=== PATIENT | female | born 1990 | race Hispanic/Latino ===

== ENCOUNTER 2018-12-25 15:48 | Outpatient (CLI) | payer OTHER ==
--- NOTE | 2018-12-25 16:36 | ULT ---
Obstetric sonogram HISTORY: evaluation. Second trimester gestation. FINDINGS: Single intrauterine gestation in breech presentation. Cervix is closed and 4.5 cm. Grade 0 placenta is anterior. Four-chamber heart motion at 158 bpm. spine and kidneys are intact as visualized. Amniotic fluid within normal limits. No gross intracranial abnormalities are demonstrated . Three-vessel cord shows a normal insertion. Measurements are as follows: Biparietal diameter 20 weeks 5 days. Head circumference 20 weeks 3 days. Abdominal circumference 20 weeks 2 days. Femur length 20 weeks 3 days. Hadlock 52 percentile. IMPRESSION: Single viable intrauterine gestation with estimated gestational age based on today's sono gram 20 weeks 4 days
== END 2018-12-25 15:49 | disposition home or self-care (01) ==
LOC: BICULT 15:48
PROVIDERS: ATTEND Family Medicine
DX: O09.892 Supervision of other high risk pregnancies, second trimester (principal); Z3A.20 20 weeks gestation of pregnancy
CPT/HCPCS: 76805

== ENCOUNTER 2019-04-28 03:26 | Inpatient (IN) | payer OTHER, SELFPAY ==
[2019-04-28 03:53] VITALS: BMI 29.2
[2019-04-28 04:10] LABS: Amnisure Internal Control QC ACCEPTABLE (ACCEPTABLE)
[2019-04-28 04:11] LABS: Amnisure Test RUPTURE DETECTED (No Rupture)
[2019-04-28] MEDS ORDERED: Acetaminophen 500 MG TAB PO PRN (04:39)
[2019-04-28] MEDS ORDERED: hydrALAZINE 20 MG/ML VIAL SLOW IVP PRN ×2 (04:39→10:36)
[2019-04-28] MEDS ORDERED: Ondansetron PF 4 MG/2 ML Vial IVP PRN ×3 (04:39→10:36)
[2019-04-28] MEDS ORDERED: Butorphanol Tartrate 1 MG/ML VIAL SLOW IVP PRN (04:39)
[2019-04-28] MEDS ORDERED: Promethazine HCl 25 MG/ML VIAL IM PRN ×2 (04:39→09:09)
[2019-04-28] MEDS ORDERED: Ibuprofen 800 MG TAB PO PRN (04:45)
[2019-04-28] MEDS ORDERED: NS / Oxytocin 40 units/1000ml 1,000 ML IV SCH ×2 (04:45→10:36)
[2019-04-28] MEDS ORDERED: Misoprostol 200 MCG TAB RC PRN (04:45)
[2019-04-28] MEDS ORDERED: Carboprost 250 MCG/ML AMP IM PRN (04:45)
[2019-04-28] MEDS ORDERED: NS w/ Oxytocin 10 units 500 ML IV SCH ×2 (04:45)
[2019-04-28] MEDS ORDERED: Methylergonovine 0.2 MG/ML VIAL IM PRN (04:45)
[2019-04-28] MEDS ORDERED: Diphenoxylate HCl/Atropine Tablet PO PRN (04:45)
[2019-04-28] MEDS ORDERED: HYDROcodone/Acetaminophen 5/325 mg Tablet PO PRN ×2 (04:45→10:36)
[2019-04-28] MEDS ORDERED: Lidocaine 1% (PF) 30 ML VIAL SC PRN (04:45)
[2019-04-28] MEDS: Lactated Ringer's 1,000 ML IV SCH ×2 (05:20→08:08)
[2019-04-28 05:56] LABS: Hemoglobin 11.9 g/dL (12.0-16.0); Mean Corpuscular HGB CONC 34.5 g/dL (32.0-36.0); Mean Corpuscular Hemoglobin 28.6 pg (27.0-31.0); Mean Corpuscular Volume 82.9 fL (78.0-98.0); Mean Platelet Volume 8.7 fL (7.4-10.4); Platelet Count 229 thou/uL (130-400); RBC Distribution Width 12.4 % (11.5-14.5); Red Blood Cell (RBC) Count 4.17 mill/uL (4.20-5.40); White Blood Cell (WBC) Count 8.4 thou/uL (4.8-10.8)
[2019-04-28 06:39] LABS: HBSAg Index 0.13 S/CO (0-0.99); Hep B Surf Ag Non-Reactive S/CO (NonReactive); Syphilis Antibody Nonreactive (Nonreactive); Syphilis Antibody Index 0.06 S/CO (<1.00 Non-Reactive)
[2019-04-28] MEDS ORDERED: Fentanyl 4 mcg/Bup 0.1% Cadd 100 ML ONE (08:03)
[2019-04-28] MEDS ORDERED: NS / Oxytocin 40 units/1000ml 1,000 ML ONE (09:01)
[2019-04-28] MEDS ORDERED: Lidocaine 1% (PF) 30 ML VIAL ONE (09:01)
[2019-04-28] MEDS ORDERED: diphenhydrAMINE 50 MG/ML VIAL IVP PRN (09:09)
[2019-04-28] MEDS ORDERED: ePHEDrine/0.9% NaCl/PF SYRINGE 50 mg/10 ml SLOW IVP PRN (09:09)
[2019-04-28] MEDS ORDERED: Acetaminophen 325 MG TAB PO PRN (09:09)
[2019-04-28] MEDS ORDERED: Lactated Ringer's 500 ML IV PRN (09:09)
[2019-04-28] MEDS ORDERED: Naloxone HCl 0.4 mg/ml Vial IVP PRN ×2 (09:09)
[2019-04-28] MEDS ORDERED: Communication Order-Pharmacy FS SCH (09:15)
[2019-04-28] MEDS ORDERED: Fentanyl 4 mcg/Bupivacaine 0.1% Cassette 100 ML EPIDURAL SCH (09:15)
[2019-04-28] MEDS ORDERED: Misoprostol 200 MCG TAB ONE (09:20)
[2019-04-28] MEDS ORDERED: Lanolin Ointment 7 GM TUBE TOP PRN (10:36)
[2019-04-28] MEDS ORDERED: diphenhydrAMINE 25 MG CAP PO PRN (10:36)
[2019-04-28] MEDS ORDERED: Adacel (T-DAP) 0.5 ML SYRINGE IM ONE (10:36)
[2019-04-28] MEDS ORDERED: Bisacodyl 10 MG SUPP PR PRN (10:36)
[2019-04-28] MEDS ORDERED: Milk Of Magnesia 30 ML UDCUP PO PRN (10:36)
[2019-04-28] MEDS: Ibuprofen 800 MG TAB PO SCH ×2 (12:30→21:18)
[2019-04-28] MEDS: HYDROcodone/Acetaminophen 5/325 mg Tablet PO PRN (15:09)
[2019-04-28] MEDS: Ferrous Sulfate 325 MG TAB PO SCH (17:19)
[2019-04-28] MEDS: Docusate Calcium (SURFAK) 240 MG CAP PO SCH (21:18)
[2019-04-29] MEDS: Ibuprofen 800 MG TAB PO SCH ×2 (04:46→13:19)
[2019-04-29] MEDS: HYDROcodone/Acetaminophen 5/325 mg Tablet PO PRN ×4 (04:46→16:52)
[2019-04-29 06:54] LABS: Hemoglobin 11.3 g/dL (12.0-16.0); Mean Corpuscular HGB CONC 33.9 g/dL (32.0-36.0); Mean Corpuscular Hemoglobin 28.9 pg (27.0-31.0); Mean Corpuscular Volume 85.2 fL (78.0-98.0); Mean Platelet Volume 8.6 fL (7.4-10.4); Platelet Count 194 thou/uL (130-400); RBC Distribution Width 12.7 % (11.5-14.5); Red Blood Cell (RBC) Count 3.92 mill/uL (4.20-5.40); White Blood Cell (WBC) Count 6.6 thou/uL (4.8-10.8)
[2019-04-29] MEDS: Ferrous Sulfate 325 MG TAB PO SCH (08:07)
[2019-04-29 08:18] VITALS: BP 91/52; TEMP 98.6
[2019-04-29] MEDS: Docusate Calcium (SURFAK) 240 MG CAP PO SCH (08:29)
[2019-04-29] MEDS ORDERED: Prenatal Vitamin 1 TAB PO SCH (09:00)
== END 2019-04-29 17:20 | disposition home or self-care (01) | DRG 807 ==
LOC: L&D/OP 03:26 → L&D 04:52 → 3SW 14:46
PROVIDERS: ADMIT Family Medicine; ATTEND Family Medicine
PROC: 10E0XZZ Delivery of Products of Conception, External Approach (ICD-10-PCS; principal; 2019-04-28)
DX: O80 Encounter for full-term uncomplicated delivery (principal); Z37.0 Single live birth; Z3A.37 37 weeks gestation of pregnancy
CPT/HCPCS: 36415; 84112; 85027; 86780; 86850; 86900; 86901; 87340; J2001; J2590

== ENCOUNTER 2020-06-23 09:35 | Inpatient (IN) | payer SELFPAY, OTHER ==
[~2020-06-23 09:35] MED LIST: Iopamidol 370 76% 50 ML VIAL FS ONE
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
[2020-06-23] MEDS ORDERED: Fentanyl 100 MCG/2 ML VIAL ONE ×2 (10:04→10:47)
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
[2020-06-23 10:32] LABS: Hemoglobin 9.9 g/dL (12.0-16.0); Mean Corpuscular HGB CONC 32.7 g/dL (32.0-36.0); Mean Corpuscular Hemoglobin 28.6 pg (27.0-31.0); Mean Corpuscular Volume 87.5 fL (78.0-98.0); Mean Platelet Volume 8.2 fL (7.4-10.4); Platelet Count 267 thou/uL (130-400); RBC Distribution Width 11.6 % (11.5-14.5); Red Blood Cell (RBC) Count 3.47 mill/uL (4.20-5.40); White Blood Cell (WBC) Count 27.1 thou/uL (4.8-10.8)
[2020-06-23 10:40] LABS: INR-International Normal Ratio 1.3; PTT 27.6 sec (22.9-36.1); Prothrombin Time 16.1 sec (12.0-14.7)
[2020-06-23] MEDS ORDERED: Ondansetron PF 4 MG/2 ML Vial ONE (10:44)
[2020-06-23] MEDS ORDERED: Midazolam HCl 2 mg/2 ml Vial ONE (10:46)
[2020-06-23 10:57] LABS: ALT (SGPT) 12 U/L (8-55); AST (SGOT) 19 U/L (5-34); Albumin 3.2 g/dL (3.5-5.0); Alkaline Phosphatase 50 U/L (40-110); Anion Gap 13 mmol/L (10-20); BUN (Urea Nitrogen) 12 mg/dL (7.0-18.7); Band 15 % (5-11); Bilirubin, Total 0.7 mg/dL (0.2-1.2); Calc. Creatinine Clearance 0 mL/min (70-130); Calcium 7.3 mg/dL (7.8-10.44); Carbon Dioxide 18 mmol/L (22-29); Chloride 104 mmol/L (98-107); Globulin 2.1 g/dL (2.4-3.5); Glucose 213 mg/dL (70-105); Lipase 15 U/L (8-78); Lymphocytes 11 % (21-51); MDiff Complete? YES; Magnesium 1.8 mg/dL (1.6-2.6); Monocytes 4 % (0-10); Myelocyte 1 % (0-0); Neutrophil 69 % (42-75); Protein, Total 5.3 g/dL (6.0-8.3); RBC Morphology Normal; Sodium 132 mmol/L (136-145)
[2020-06-23 10:59] LABS: Bilirubin Negative (Negative); Blood, Urine Large (Negative)
[2020-06-23 11:01] LABS: Clarity Turbid (Clear); Glucose, Urine (Dipstick) Unable to Interpret mg/dL (Negative); Ketone, Urine 40 mg/dL (Negative); Leukocyte Negative Leu/uL (Negative); Nitrite Unable to Interpret (Negative)
[2020-06-23 11:04] LABS: Protein, Urine (Dipstick) 100 mg/dL (Neg-Trace); Specific Gravity, Urine 1.055 (1.002-1.036)
[2020-06-23 11:05] LABS: Pregnancy Test - Urine (BHCG) Negative (Negative); Pregu Control Background? CLEAR/WHITE (CLR/WHITE); Pregu Control Bar Appear? YES (CONTROL BAR); Specific Gravity 1.055 (1.002-1.036)
[2020-06-23 11:08] LABS: RBC/HPF Greater than 50 HPF (0-3)
[2020-06-23 11:11] LABS: Bacteria/HPF None Seen HPF (None Seen); Squamous Epithelial 0-3 HPF (0-3)
[2020-06-23 11:42] LABS: Phosphorus 2.8 mg/dL (2.3-4.7)
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
[2020-06-23] MEDS ORDERED: Morphine 2 MG/ML VIAL ONE (12:16)
--- NOTE | 2020-06-23 12:41 | RAD ---
XR Chest 1 View Portable History: Line placement Comparison: CT exam same day Findings: Subclavian central venous catheter is in place with tip at the right atrium. No pneumothora x. Impression: Uncomplicated central line placement.
[2020-06-23] MEDS ORDERED: Dextrose 5% in Water 1,000 ML IV PRN (12:49)
[2020-06-23] MEDS ORDERED: traMADol HCl 50 MG TAB PO PRN (12:49)
[2020-06-23] MEDS ORDERED: Ondansetron ODT 4 MG TAB PO PRN (12:49)
[2020-06-23] MEDS ORDERED: Dextrose 50% Abboject 50 ML SYRINGE SLOW IVP PRN (12:49)
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
[2020-06-23] MEDS: Morphine 2 MG/ML VIAL SLOW IVP PRN ×5 (13:23→22:09)
[2020-06-23] MEDS: Sodium Chloride 0.9% 1,000 ML IV SCH ×2 (13:24→19:30)
[2020-06-23 13:30] VITALS: BMI 24.0
[2020-06-23 13:48] LABS: Lactic Acid 1.7 mmol/L (0.5-2.2)
[2020-06-23] MEDS: Cyclobenzaprine 10 MG TAB PO PRN (16:29)
[2020-06-23] MEDS: Acetaminophen 325 MG TAB PO SCH (16:29)
[2020-06-23 18:46] LABS: SARS-CoV-2 MS2 Positive; SARS-CoV-2 N Gene Negative; SARS-CoV-2 S Gene Negative; SARS-CoV-2 by NAA Not Detected (NotDetected); SARS-CoV-2 orf1ab Negative
[2020-06-23] MEDS: Famotidine 20 MG TAB PO SCH (19:30)
[2020-06-23] MEDS: traMADol HCl 50 MG TAB PO PRN (19:30)
[2020-06-24] MEDS: Cyclobenzaprine 10 MG TAB PO PRN ×2 (00:20→07:58)
[2020-06-24] MEDS: Acetaminophen 325 MG TAB PO SCH ×4 (00:20→17:20)
[2020-06-24 01:05] LABS: Hemoglobin 11.3 g/dL (12.0-16.0)
[2020-06-24] MEDS: Ondansetron PF 4 MG/2 ML Vial IVP PRN ×2 (02:33→19:07)
[2020-06-24 03:08] LABS: #Lymphocytes 1.5 thou/uL (1.20-3.40); #Monocytes 1.7 thou/uL (0.11-0.59); #Neutrophils 19.4 thou/uL (1.40-6.50); %Basophils 0.1 % (0.0-1.0); %Eosinophils 0.1 % (0.0-10.0); %Lymphocytes 6.4 % (21.0-51.0); %Monocytes 7.4 % (0.0-10.0); %Neutrophils 86.1 % (42.0-75.0); Hemoglobin 10.8 g/dL (12.0-16.0); Mean Corpuscular HGB CONC 33.6 g/dL (32.0-36.0); Mean Corpuscular Hemoglobin 29.3 pg (27.0-31.0); Mean Corpuscular Volume 87.3 fL (78.0-98.0); Mean Platelet Volume 8.5 fL (7.4-10.4); Platelet Count 198 thou/uL (130-400); RBC Distribution Width 11.8 % (11.5-14.5); White Blood Cell (WBC) Count 22.5 thou/uL (4.8-10.8)
[2020-06-24] MEDS: traMADol HCl 50 MG TAB PO PRN ×2 (03:31→17:21)
[2020-06-24 03:45] LABS: Anion Gap 12 mmol/L (10-20); BUN (Urea Nitrogen) 14 mg/dL (7.0-18.7); Calc. Creatinine Clearance 82 mL/min (70-130); Calcium 7.4 mg/dL (7.8-10.44); Carbon Dioxide 22 mmol/L (22-29); Chloride 106 mmol/L (98-107); Glucose 119 mg/dL (70-105); Magnesium 1.8 mg/dL (1.6-2.6); Phosphorus 3.6 mg/dL (2.3-4.7); Potassium 4.2 mmol/L (3.5-5.1); Sodium 136 mmol/L (136-145)
[2020-06-24] MEDS: Morphine 2 MG/ML VIAL SLOW IVP PRN (07:07)
[2020-06-24 07:12] LABS: Hemoglobin 10.2 g/dL (12.0-16.0)
[2020-06-24] MEDS ORDERED: Morphine 2 MG/ML VIAL SLOW IVP PRN (07:18)
[2020-06-24] MEDS ORDERED: Magnesium 2 GM/50 ML 2 GM in Premix Bag 1 BAG IVPB SCH (07:30)
[2020-06-24] MEDS ORDERED: PHOS-NAK 1 PKT PACK PO SCH (07:30)
[2020-06-24] MEDS: Famotidine 20 MG TAB PO SCH ×2 (07:58→20:57)
[2020-06-24] MEDS: Gabapentin 300 MG CAP PO SCH ×3 (07:59→20:57)
[2020-06-24] MEDS: Senokot S 8.6-50 MG TAB PO SCH ×2 (07:59→20:57)
[2020-06-24] MEDS: Polyethylene Glycol 3350 17 GM Packet PO SCH (08:00)
[2020-06-24] MEDS ORDERED: FLU VACC QS2020-21(6MOS UP)/PF 60 MCG/0.5 ML SYRINGE IM ONE (09:00)
[2020-06-24] MEDS: Diazepam 5 MG TAB PO PRN ×2 (09:41→20:57)
--- NOTE | 2020-06-24 10:59 | OP ---
DATE OF PROCEDURE: 06/23/2020 PREOPERATIVE DIAGNOSES: Multitrauma with hemorrhagic shock and bleeding from a grade 4 splenic laceration and left kidney laceration. POSTOPERATIVE DIAGNOSES: Multitrauma with hemorrhagic shock and bleeding from a grade 4 splenic laceration and left kidney laceration. PROCEDURES PERFORMED: 1. Ultrasound-guided right femoral artery access. 2. Abdominal aortogram. 3. Left renal artery angiogram. 4. Superior mesenteric artery angiogram. 5. Celiac artery angiogram. 6. Splenic artery angiogram. 7. Splenic artery embolization with a 6 x 100/6 x 200/8 x 200 interlocked coil. 8. Inferior vena cavogram. 9. OptEase inferior vena cava filter placement with a hook facing caudad. CONTRAST: 38 mL. TOTAL FLUORO TIME: 5.9 minutes. ESTIMATED BLOOD LOSS: Less than 10. DESCRIPTION OF PROCEDURE: The patient was urgently brought from the Emergency Department to the stucco laborer. She was given 2 mg Versed and 50 mcg fentanyl total for sedation. Groins were prepped and draped in usual sterile fashion. Using ultrasound guidance, the right groin was anesthetized with 1% lidocaine. Using ultrasound guidance, the right femoral artery was accessed and a 5-Romansh sheath was placed into the external iliac artery. Contra catheter was placed in the abdominal aorta. Aortogram was performed localizing the renal arteries. Angled Janusz catheter and Bentson guidewire were used to access the left renal artery. Multiple views of the left renal artery were taken with multiple injections and there was no active extravasation noted. [place]iden catheter was backed back into the aorta and advanced cephalad. Using a lateral projection, the SMA was accessed and angiogram was performed showing no active bleeding. The celiac artery was then accessed and hand-injected arteriogram performed. The splenic artery was tortuous, but passed as expected into the left upper quadrant. Using a Bentson guidewire and angled Janusz catheter, the splenic artery was accessed and the catheter advanced into the splenic artery. We changed our projection back to an AP projection and hand-injected arteriogram was performed. There were multiple areas of bleeding in the spleen. We elected to embolize the main splenic artery. Direxion catheter and interlock coils were then placed in the distal splenic artery proximal of the hilum. The coils were placed as above. Catheters were then removed. A Bentson guidewire was replaced and a ProGlide used to close the right femoral artery. The right femoral vein was then accessed and vena cavogram catheter passed into the abdominal vena cava. Hand-injected vena cavogram was performed. There was good hourglass at the L1-L2 junction. The tip of the filter was then placed at the superior border of L2. Filter was deployed, seated nicely. Hook was facing caudad. Catheter was removed and manual pressure held for hemostasis. The patient was transferred to the intensive care unit in stable condition. Job ID: [id number]
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
[2020-06-24 19:23] LABS: Hemoglobin 9.8 g/dL (12.0-16.0); Mean Corpuscular HGB CONC 34.1 g/dL (32.0-36.0); Mean Corpuscular Hemoglobin 29.8 pg (27.0-31.0); Mean Corpuscular Volume 87.4 fL (78.0-98.0); Mean Platelet Volume 8.2 fL (7.4-10.4); Platelet Count 195 thou/uL (130-400); RBC Distribution Width 11.9 % (11.5-14.5); White Blood Cell (WBC) Count 22.2 thou/uL (4.8-10.8)
[2020-06-25] MEDS: Acetaminophen 325 MG TAB PO SCH ×5 (00:16→23:35)
[2020-06-25] MEDS: traMADol HCl 50 MG TAB PO PRN ×2 (02:26→08:59)
[2020-06-25 07:53] LABS: Hemoglobin 9.1 g/dL (12.0-16.0); Mean Corpuscular HGB CONC 33.8 g/dL (32.0-36.0); Mean Corpuscular Hemoglobin 29.6 pg (27.0-31.0); Mean Corpuscular Volume 87.6 fL (78.0-98.0); Mean Platelet Volume 7.9 fL (7.4-10.4); Platelet Count 199 thou/uL (130-400); Red Blood Cell (RBC) Count 3.06 mill/uL (4.20-5.40); White Blood Cell (WBC) Count 20.9 thou/uL (4.8-10.8)
[2020-06-25 08:21] LABS: Anion Gap 13 mmol/L (10-20); BUN (Urea Nitrogen) 8 mg/dL (7.0-18.7); Calc. Creatinine Clearance 91 mL/min (70-130); Calcium 7.8 mg/dL (7.8-10.44); Carbon Dioxide 24 mmol/L (22-29); Chloride 102 mmol/L (98-107); Glucose 100 mg/dL (70-105); Phosphorus 2.3 mg/dL (2.3-4.7); Sodium 135 mmol/L (136-145)
[2020-06-25] MEDS: Gabapentin 300 MG CAP PO SCH ×3 (08:44→21:14)
[2020-06-25] MEDS: Ferrous Sulfate 325 MG TAB PO SCH ×2 (08:45→21:14)
[2020-06-25] MEDS: Senokot S 8.6-50 MG TAB PO SCH ×2 (08:45→21:13)
[2020-06-25] MEDS: Famotidine 20 MG TAB PO SCH ×2 (08:45→21:47)
[2020-06-25] MEDS: Ascorbic Acid 500 mg Chewable Tablet PO SCH ×2 (08:45→21:14)
[2020-06-25] MEDS: Polyethylene Glycol 3350 17 GM Packet PO SCH (08:47)
[2020-06-25] MEDS ORDERED: traMADol HCl 50 MG TAB PO PRN (10:24)
[2020-06-25] MEDS: Diazepam 5 MG TAB PO PRN ×2 (11:25→21:13)
[2020-06-25] MEDS: traMADol HCl 50 MG TAB PO SCH ×3 (11:35→23:34)
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
[2020-06-25 23:21] LABS: Band 29 % (5-11); Hemoglobin 8.8 g/dL (12.0-16.0); Lymphocytes 8 % (21-51); MDiff Complete? YES; Mean Corpuscular HGB CONC 33.1 g/dL (32.0-36.0); Mean Corpuscular Hemoglobin 29.1 pg (27.0-31.0); Mean Corpuscular Volume 88.1 fL (78.0-98.0); Monocytes 6 % (0-10); Neutrophil 57 % (42-75); Platelet Count 225 thou/uL (130-400); Platelet Morphology Comment Appears Adequate; RBC Distribution Width 11.8 % (11.5-14.5); Red Blood Cell (RBC) Count 3.03 mill/uL (4.20-5.40)
[2020-06-26] MEDS: Acetaminophen/Codeine 30-300mg Tablet PO PRN ×2 (01:18→10:26)
[2020-06-26] MEDS ORDERED: Sodium Chloride 0.9% 1,000 ML IV SCH (02:15)
[2020-06-26 03:48] LABS: #Lymphocytes 1.7 thou/uL (1.20-3.40); #Monocytes 1.5 thou/uL (0.11-0.59); #Neutrophils 18.7 thou/uL (1.40-6.50); %Basophils 0.1 % (0.0-1.0); %Eosinophils 0.1 % (0.0-10.0); %Lymphocytes 7.8 % (21.0-51.0); %Monocytes 6.8 % (0.0-10.0); %Neutrophils 85.2 % (42.0-75.0); Hemoglobin 7.7 g/dL (12.0-16.0); Mean Corpuscular HGB CONC 32.8 g/dL (32.0-36.0); Mean Corpuscular Hemoglobin 29.1 pg (27.0-31.0); Mean Corpuscular Volume 88.7 fL (78.0-98.0); Mean Platelet Volume 7.7 fL (7.4-10.4); Platelet Count 205 thou/uL (130-400); RBC Distribution Width 11.8 % (11.5-14.5); Red Blood Cell (RBC) Count 2.64 mill/uL (4.20-5.40)
--- NOTE | 2020-06-26 04:12 | PRG ---
DATE OF SERVICE: 06/25/2020 SUBJECTIVE: Patient was seen during evening rounds, awake, alert, in no distress. Patient has been tachycardic since admission, but worsening today. Patient's heart rate currently 130s to 140s. Patient is only able to pull 500 mL on her incentive spirometer. Patient states that she has only been using that every 3 hours. Patient states that pain is just minimal whenever she does use the incentive spirometer. Patient reports that she did ambulate some today. Patient is able to cough deeply without any significant pain. Patient has not had a bowel movement and remains on a bowel regimen. 1 liter bolus of NS was given with no improvement in HR. OBJECTIVE: VITAL SIGNS: Temperature 99.4, pulse 135, respirations 18, SpO2 of 95% on room air, blood pressure 112/72. GENERAL: Well-appearing female, awake, alert, no distress. PULMONARY: Good inspiratory and expiratory effort. Respirations are even and nonlabored, bilateral breath sounds diminished in bilateral bases. Patient did improve to 1000 mL on her incentive spirometer with coaching. CARDIAC: Regular rate, tachycardic, no pedal edema. ABDOMEN: Soft, mildly tender with palpation diffusely, nondistended. EXTREMITIES: Moves all extremities. No focal deficits. NEUROLOGIC: GCS 15. PLAN: Continue supportive care. We will increase pain regimen and schedule tramadol 100 mg. Patient has been encouraged to cough deeply and use her incentive spirometer every hour x10 while awake. Patient has also been instructed to increase activity and be up in the chair during the day as much as possible. We will continue to monitor urinary output. Repeat labs in the morning. We will also obtain a chest x-ray in the morning. Morning hemoglobin was 7.7. 1 unit PRBC was ordered due to being being tachycardic at 135-140. Job ID: [id number] [facility]
[2020-06-26 04:16] LABS: Anion Gap 11 mmol/L (10-20); BUN (Urea Nitrogen) 6 mg/dL (7.0-18.7); Calc. Creatinine Clearance 101 mL/min (70-130); Calcium 7.3 mg/dL (7.8-10.44); Carbon Dioxide 26 mmol/L (22-29); Chloride 102 mmol/L (98-107); Glucose 91 mg/dL (70-105); Magnesium 1.8 mg/dL (1.6-2.6); Phosphorus 2.3 mg/dL (2.3-4.7); Potassium 3.6 mmol/L (3.5-5.1); Sodium 135 mmol/L (136-145)
[2020-06-26] MEDS: traMADol HCl 50 MG TAB PO SCH ×4 (06:13→23:27)
[2020-06-26] MEDS: Acetaminophen 325 MG TAB PO SCH ×4 (06:13→23:26)
[2020-06-26] MEDS: Famotidine 20 MG TAB PO SCH ×2 (08:11→20:32)
[2020-06-26] MEDS: Gabapentin 300 MG CAP PO SCH ×3 (08:11→20:31)
[2020-06-26] MEDS: Ascorbic Acid 500 mg Chewable Tablet PO SCH ×2 (08:12→20:30)
[2020-06-26] MEDS: Polyethylene Glycol 3350 17 GM Packet PO SCH (08:12)
[2020-06-26] MEDS: Ferrous Sulfate 325 MG TAB PO SCH ×2 (08:12→20:33)
[2020-06-26] MEDS: Senokot S 8.6-50 MG TAB PO SCH ×2 (08:12→20:33)
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
[2020-06-26] MEDS ORDERED: Iopamidol-370 76% 500 ML 1 ML ONE (11:14)
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
[2020-06-26] MEDS: Ondansetron PF 4 MG/2 ML Vial IVP PRN (12:48)
[2020-06-26] MEDS ORDERED: Prevnar 13-Val Conj/PF 0.5 ML SYRINGE IM ONE (13:00)
[2020-06-26] MEDS ORDERED: Meningococcal Vaccine 0.5ML VIAL (MENACTRA) IM ONE (17:00)
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
[2020-06-26] MEDS ORDERED: Acthib 0.5 ML VIAL IM ONE (21:00)
--- NOTE | 2020-06-27 00:06 | PRG ---
DATE OF SERVICE: 06/26/2020 SUBJECTIVE: The patient was seen during evening rounds, awake, alert, sitting up in bed, in no distress. The patient's pain is well controlled at this time. The patient has not had a bowel movement since admission. The patient is using her incentive spirometer, reaching 1000 mL currently. The patient is waiting for the nurse to assist her with ambulating. The patient is afebrile and vitals are stable, continues to be mildly tachycardic. The patient's Dao catheter was removed today and the patient is voiding without any difficulties. PLAN: Continue supportive care and pain regimen. Continue aggressive pulmonary toilet. Job ID: [id number]
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
[2020-06-27] MEDS ORDERED: Bisacodyl 10 MG SUPP PR SCH (04:00)
[2020-06-27 04:31] LABS: #Eosinphils 0.1 thou/uL (0.0-0.7); #Lymphocytes 1.1 thou/uL (1.20-3.40); #Monocytes 1.5 thou/uL (0.11-0.59); #Neutrophils 16.1 thou/uL (1.40-6.50); %Basophils 0.1 % (0.0-1.0); %Eosinophils 0.3 % (0.0-10.0); %Monocytes 7.8 % (0.0-10.0); %Neutrophils 85.7 % (42.0-75.0); Hemoglobin 9.5 g/dL (12.0-16.0); Mean Corpuscular HGB CONC 34.3 g/dL (32.0-36.0); Mean Corpuscular Hemoglobin 30.7 pg (27.0-31.0); Mean Corpuscular Volume 89.6 fL (78.0-98.0); Mean Platelet Volume 7.6 fL (7.4-10.4); Platelet Count 244 thou/uL (130-400); RBC Distribution Width 11.9 % (11.5-14.5); Red Blood Cell (RBC) Count 3.08 mill/uL (4.20-5.40); White Blood Cell (WBC) Count 18.8 thou/uL (4.8-10.8)
[2020-06-27 04:50] LABS: Anion Gap 11 mmol/L (10-20); BUN (Urea Nitrogen) 7 mg/dL (7.0-18.7); Calc. Creatinine Clearance 108 mL/min (70-130); Carbon Dioxide 27 mmol/L (22-29); Chloride 97 mmol/L (98-107); Glucose 92 mg/dL (70-105); Magnesium 1.9 mg/dL (1.6-2.6); Phosphorus 2.1 mg/dL (2.3-4.7); Potassium 3.4 mmol/L (3.5-5.1); Sodium 132 mmol/L (136-145)
[2020-06-27] MEDS: Acetaminophen 325 MG TAB PO SCH (05:23)
[2020-06-27] MEDS: traMADol HCl 50 MG TAB PO SCH (05:24)
[2020-06-27] MEDS ORDERED: Potassium Phosphate 30 MMOL in Sodium Chloride 0.9% 250 ML 250 ML IVPB SCH (08:00)
[2020-06-27] MEDS ORDERED: Magnesium 2 GM/50 ML 2 GM in Premix Bag 1 BAG IVPB SCH (08:00)
[2020-06-27] MEDS: Polyethylene Glycol 3350 17 GM Packet PO SCH (08:04)
[2020-06-27] MEDS: Senokot S 8.6-50 MG TAB PO SCH (08:04)
[2020-06-27] MEDS ORDERED: FLU VACC QS2020-21(6MOS UP)/PF 60 MCG/0.5 ML SYRINGE IM ONE (09:00)
[2020-06-27 09:04] VITALS: BP 116/76
[2020-06-27] MEDS: Ascorbic Acid 500 mg Chewable Tablet PO SCH (09:51)
[2020-06-27] MEDS: Gabapentin 300 MG CAP PO SCH (09:57)
[2020-06-27] MEDS: Ferrous Sulfate 325 MG TAB PO SCH (09:57)
[2020-06-27] MEDS: Famotidine 20 MG TAB PO SCH (10:01)
[2020-06-27 12:17] VITALS: TEMP 98.2
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
== END 2020-06-27 13:17 | disposition home or self-care (01) | DRG 957 ==
LOC: ERS 09:35 → CCL 11:00 → CCU 12:48 → SURG B 06-25 13:18
PROVIDERS: ADMIT Surgery; ATTEND Physician Assistant
PROC: 06H03DZ Insertion of Intraluminal Device into Inferior Vena Cava, Percutaneous Approach (ICD-10-PCS; principal; 2020-06-23)
PROC: 04V43DZ Restriction of Splenic Artery with Intraluminal Device, Percutaneous Approach (ICD-10-PCS; 2020-06-23)
PROC: B4131ZZ Fluoroscopy of Splenic Arteries using Low Osmolar Contrast (ICD-10-PCS; 2020-06-23)
PROC: B4141ZZ Fluoroscopy of Superior Mesenteric Artery using Low Osmolar Contrast (ICD-10-PCS; 2020-06-23)
PROC: B41J1ZZ Fluoroscopy of Other Lower Arteries using Low Osmolar Contrast (ICD-10-PCS; 2020-06-23)
PROC: B4171ZZ Fluoroscopy of Left Renal Artery using Low Osmolar Contrast (ICD-10-PCS; 2020-06-23)
DX: S36.039A Unspecified laceration of spleen, initial encounter (principal); T79.4XXA Traumatic shock, initial encounter; S37.032A Laceration of left kidney, unspecified degree, initial encounter; S22.42XA Multiple fractures of ribs, left side, initial encounter for closed fracture; E87.2 Acidosis; D62 Acute posthemorrhagic anemia; J98.11 Atelectasis; V69.49XA Driver of heavy transport vehicle injured in collision with other motor vehicles in traffic accident, initial encounter; F17.210 Nicotine dependence, cigarettes, uncomplicated; Z20.828 Contact with and (suspected) exposure to other viral communicable diseases
CPT/HCPCS: 36246; 36415; 36430; 36556; 37191; 37244; 51702; 70450; 71045; 71260; 72125; 74177; 76942; 80048; 80053; 81003; 81015; 81025; 83605; 83690; 83735; 84100; 85014; 85018; 85025; 85027; 85610; 85730; 86850; 86900; 86901; 87635; 90471; 90648; 90662; 90670; 90733; 96374; 99152; 99153; G0008; G0009; G0390; J2250; J2270; J2405; J3010; J3475; J7050; P9016; P9048; Q9967; U0003

== ENCOUNTER 2020-07-04 21:41 | Observation (INO) | payer OTHER, SELFPAY ==
[~2020-07-04 21:41] MED LIST changes: -Iopamidol 370 76% 50 ML VIAL FS ONE; +Iopamidol-370 76% 500 ML 1 ML ONE
[2020-07-04 22:22] LABS: #Eosinphils 0.1 thou/uL (0.0-0.7); #Lymphocytes 1.5 thou/uL (1.20-3.40); #Monocytes 0.8 thou/uL (0.11-0.59); #Neutrophils 11.7 thou/uL (1.40-6.50); %Eosinophils 0.9 % (0.0-10.0); %Lymphocytes 10.8 % (21.0-51.0); %Monocytes 5.3 % (0.0-10.0); Hemoglobin 10.6 g/dL (12.0-16.0); Mean Corpuscular HGB CONC 32.5 g/dL (32.0-36.0); Mean Corpuscular Hemoglobin 29.7 pg (27.0-31.0); Mean Corpuscular Volume 91.4 fL (78.0-98.0); Mean Platelet Volume 7.1 fL (7.4-10.4); Platelet Count 874 thou/uL (130-400); RBC Distribution Width 13.6 % (11.5-14.5); Red Blood Cell (RBC) Count 3.56 mill/uL (4.20-5.40)
[2020-07-04 22:38] LABS: ALT (SGPT) 74 U/L (8-55); AST (SGOT) 78 U/L (5-34); Albumin 3.3 g/dL (3.5-5.0); Alkaline Phosphatase 370 U/L (40-110); Anion Gap 11 mmol/L (10-20); BUN (Urea Nitrogen) 9 mg/dL (7.0-18.7); Bilirubin, Total 1.2 mg/dL (0.2-1.2); Calc. Creatinine Clearance 0 mL/min (70-130); Calcium 8.8 mg/dL (7.8-10.44); Carbon Dioxide 29 mmol/L (22-29); Chloride 99 mmol/L (98-107); Glucose 110 mg/dL (70-105); Potassium 4.3 mmol/L (3.5-5.1); Protein, Total 8.3 g/dL (6.0-8.3); Sodium 135 mmol/L (136-145)
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
[2020-07-04] MEDS ORDERED: Morphine 4 MG/ML VIAL ONE (23:19)
[2020-07-04 23:20] LABS: Bacteria/HPF 4+ HPF (None Seen); Bilirubin Negative (Negative); Blood, Urine 3+ (Negative); Clarity Turbid (Clear); Glucose, Urine (Dipstick) Normal (Negative); Ketone, Urine Negative (Negative); Leukocyte 500 Leu/uL (Negative); Nitrite 2+ (Negative); Protein, Urine (Dipstick) 50 mg/dL (Neg-Trace); RBC/HPF 21-50 HPF (0-3); Specific Gravity, Urine 1.025 (1.002-1.036); Squamous Epithelial 0-3 HPF (0-3); WBC/HPF Greater than 50 HPF (0-3)
--- NOTE | 2020-07-04 23:42 | CT ---
CT ABDOMEN WITH CONTRAST CT PELVIS WITH CONTRAST: DATE: 07/04/2020 HISTORY: 29-year-old female with left-sided abdominal pain and fever COMPARISON: 06/26/2020 TECHNIQUE: IV injection of iodinated contrast media: administered. Oral contrast media:Not administered FINDINGS: The small left pleural effusion and the adjacent left lower lobe passive atelectasis, have resolved. There is new subsegmental atelectasis at basilar segments of left lower lobe. Right lung base is clear. The left splenic and perisplenic hematoma has become significantly larger now, currently measuring ap proximately 12 x 7.5 x 12.5 cm. This is the cause of the new elevation of the left hemidiaphragm. There is enhancement, indicating perfusion, involving the severely lacerated splenic parenchyma. Metallic embolization coils are again noted near the splenic hilum. Again noted are the multiple severe lacerations throughout the left kidney. There is a new finding of broad region of moderately low attenuation indicating relatively decreased perfusion involving a moderate sized portion of the left renal midpole. The extensive multiloculated, multi septated hematoma in the left perirenal space has decreased in vo lume. However, the septations have a greater degree of enhancement now. No pathology identified involving liver, right kidney, abdominal aorta, pancreas, or adrenals. Normal appendix. There has been significant interval decrease in volume of free fluid (probably blood) within the pelv ic cavity, but a significant amount remains. Large volume of stool distending the rectum is a new finding. The Dao catheter is no longer present. Questionable diffuse mural thickening of urinary bladder. Displaced fracture of lateral aspect of left ninth rib. No small bowel dilation. IMPRESSION: 1) large splenic and perisplenic hematoma has grown in size (but decreased in density), and is causin g elevation of the left hemidiaphragm. 2) the multiloculated, small multiseptated left perirenal complex fluid collection consistent with he matoma, has decreased in size, but increased septal enhancement. This raises the possibility of infection of that hematoma. 3) in addition to the multiple left renal lacerations, there is a new region of decreased perfusion i n the left kidney which could either represent renal infarction or pyelonephritis.
[2020-07-04] MEDS ORDERED: Morphine 2 MG/ML VIAL SLOW IVP PRN (23:44)
[2020-07-04] MEDS ORDERED: Dextrose 50% Abboject 50 ML SYRINGE SLOW IVP PRN (23:44)
[2020-07-04] MEDS ORDERED: Dextrose 5% in Water 1,000 ML IV PRN (23:44)
[2020-07-04] MEDS ORDERED: hydrALAZINE 20 MG/ML VIAL SLOW IVP PRN (23:44)
[2020-07-04] MEDS ORDERED: Ondansetron PF 4 MG/2 ML Vial IVP PRN (23:44)
[2020-07-04 23:47] LABS: Magnesium 2.3 mg/dL (1.6-2.6); Phosphorus 3.8 mg/dL (2.3-4.7)
[2020-07-04] MEDS ORDERED: Cyclobenzaprine 10 MG TAB PO PRN (23:47)
[2020-07-05] MEDS ORDERED: Piperacillin/Tazobactam 3.375 GM VIAL ONE (00:45)
[2020-07-05] MEDS: traMADol HCl 50 MG TAB PO SCH ×4 (01:28→17:49)
[2020-07-05] MEDS: Piperacillin/Tazobactam 3.375 GM in Sodium Chloride 0.9% 100 ML IVPB SCH ×3 (01:29→11:31)
[2020-07-05 01:57] VITALS: BMI 23.2
[2020-07-05 05:52] LABS: Prothrombin Time 13.8 sec (12.0-14.7)
[2020-07-05 05:53] LABS: PTT 37.4 sec (22.9-36.1)
[2020-07-05 06:15] LABS: Band 17 % (5-11); Hemoglobin 9.4 g/dL (12.0-16.0); Lymphocytes 11 % (21-51); MDiff Complete? YES; Mean Corpuscular HGB CONC 32.7 g/dL (32.0-36.0); Mean Corpuscular Hemoglobin 29.2 pg (27.0-31.0); Mean Corpuscular Volume 89.2 fL (78.0-98.0); Mean Platelet Volume 7.2 fL (7.4-10.4); Metamyelocyte 2 % (0-0); Monocytes 2 % (0-10); Myelocyte 1 % (0-0); Neutrophil 67 % (42-75); Platelet Count 798 thou/uL (130-400); Platelet Morphology Comment Appears Increased; RBC Distribution Width 13.6 % (11.5-14.5)
[2020-07-05 06:16] LABS: Anion Gap 15 mmol/L (10-20); BUN (Urea Nitrogen) 10 mg/dL (7.0-18.7); Calc. Creatinine Clearance 104 mL/min (70-130); Calcium 8.4 mg/dL (7.8-10.44); Carbon Dioxide 24 mmol/L (22-29); Chloride 100 mmol/L (98-107); Glucose 99 mg/dL (70-105); Magnesium 2.1 mg/dL (1.6-2.6); Potassium 4.1 mmol/L (3.5-5.1); Sodium 135 mmol/L (136-145)
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
[2020-07-05 08:33] LABS: SARS-CoV-2 MS2 Positive; SARS-CoV-2 N Gene Negative; SARS-CoV-2 S Gene Negative; SARS-CoV-2 by NAA Not Detected (NotDetected); SARS-CoV-2 orf1ab Negative
[2020-07-05] MEDS ORDERED: Gabapentin 100 MG CAP PO SCH (09:00)
[2020-07-05] MEDS: Senokot S 8.6-50 MG TAB PO SCH ×2 (09:16→21:05)
[2020-07-05] MEDS: Ascorbic Acid 500 mg Chewable Tablet PO SCH ×2 (09:17→21:05)
[2020-07-05] MEDS: Polyethylene Glycol 3350 17 GM Packet PO SCH (09:17)
[2020-07-05] MEDS: Gabapentin 300 MG CAP PO SCH ×3 (09:18→21:04)
[2020-07-05] MEDS: Ferrous Sulfate 325 MG TAB PO SCH ×2 (09:18→17:48)
[2020-07-05] MEDS: Famotidine/PF 20 mg/2ml Vial SLOW IVP SCH ×2 (09:19→21:04)
[2020-07-05] MEDS: Nitrofurantoin Monohyd/M-Cryst 100 MG CAP PO SCH (21:05)
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
[2020-07-06] MEDS: traMADol HCl 50 MG TAB PO SCH ×3 (00:03→12:11)
[2020-07-06] MEDS: Polyethylene Glycol 3350 17 GM Packet PO SCH (09:19)
[2020-07-06] MEDS: Famotidine/PF 20 mg/2ml Vial SLOW IVP SCH (09:19)
[2020-07-06] MEDS: Senokot S 8.6-50 MG TAB PO SCH (09:20)
[2020-07-06] MEDS: Gabapentin 300 MG CAP PO SCH (09:28)
[2020-07-06] MEDS: Ascorbic Acid 500 mg Chewable Tablet PO SCH (09:29)
[2020-07-06] MEDS: Ferrous Sulfate 325 MG TAB PO SCH (09:29)
[2020-07-06] MEDS: Nitrofurantoin Monohyd/M-Cryst 100 MG CAP PO SCH (09:29)
[2020-07-06 09:44] LABS: White Blood Cell (WBC) Count 18.5 thou/uL (4.8-10.8)
[2020-07-06 09:59] LABS: Anion Gap 16 mmol/L (10-20); BUN (Urea Nitrogen) 8 mg/dL (7.0-18.7); Calc. Creatinine Clearance 100 mL/min (70-130); Calcium 8.8 mg/dL (7.8-10.44); Carbon Dioxide 27 mmol/L (22-29); Chloride 97 mmol/L (98-107); Glucose 96 mg/dL (70-105); Magnesium 2.2 mg/dL (1.6-2.6); Phosphorus 4.4 mg/dL (2.3-4.7); Potassium 3.8 mmol/L (3.5-5.1); Sodium 136 mmol/L (136-145)
[2020-07-06 10:14] LABS: #Basophils 0.1 thou/uL (0.0-0.2); #Eosinphils 0.1 thou/uL (0.0-0.7); #Lymphocytes 1.7 thou/uL (1.20-3.40); #Monocytes 1.2 thou/uL (0.11-0.59); #Neutrophils 15.5 thou/uL (1.40-6.50); %Basophils 0.3 % (0.0-1.0); %Eosinophils 0.5 % (0.0-10.0); %Lymphocytes 8.9 % (21.0-51.0); %Monocytes 6.2 % (0.0-10.0); %Neutrophils 84.1 % (42.0-75.0); Hemoglobin 9.9 g/dL (12.0-16.0); Mean Corpuscular HGB CONC 30.8 g/dL (32.0-36.0); Mean Corpuscular Hemoglobin 27.6 pg (27.0-31.0); Mean Corpuscular Volume 89.9 fL (78.0-98.0); Platelet Count 955 thou/uL (130-400); Platelet Morphology Comment Appears Increased; RBC Distribution Width 13.9 % (11.5-14.5); Red Blood Cell (RBC) Count 3.59 mill/uL (4.20-5.40)
[2020-07-06 11:44] VITALS: TEMP 98.8
[2020-07-06 15:30] VITALS: BP 104/78
[2020-07-07] MEDS ORDERED: Aspirin 325 mg Enteric Coated Tablet PO SCH (09:00)
[2020-07-07] MEDS ORDERED: Saccharomyces boulardii 250 MG CAP PO SCH (09:00)
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
== END 2020-07-06 15:30 | disposition home or self-care (01) ==
LOC: ERS 21:41 → SJJU 23:25
PROVIDERS: ADMIT Specialist; ATTEND Specialist
DX: R50.9 Fever, unspecified (principal); D62 Acute posthemorrhagic anemia; D72.829 Elevated white blood cell count, unspecified; N39.0 Urinary tract infection, site not specified; S22.42XA Multiple fractures of ribs, left side, initial encounter for closed fracture; G89.11 Acute pain due to trauma; R07.89 Other chest pain; J98.11 Atelectasis; S36.029A Unspecified contusion of spleen, initial encounter; S37.032A Laceration of left kidney, unspecified degree, initial encounter; Z87.891 Personal history of nicotine dependence; Z79.899 Other long term (current) drug therapy; Z20.828 Contact with and (suspected) exposure to other viral communicable diseases; V89.2XXA Person injured in unspecified motor-vehicle accident, traffic, initial encounter
CPT/HCPCS: 36415; 71045; 74177; 80048; 80053; 81003; 81015; 83735; 84100; 85025; 85610; 85730; 87077; 87086; 87186; 87635; 94640; 96375; 96376; G0378; J2270; J2543; J3490; J7620; Q9967; S0028; U0003

== ENCOUNTER 2020-07-25 08:07 | Outpatient (CLI) | payer MEDICAID, OTHER ==
[2020-07-26 10:58] LABS: SARS-CoV-2 PCR by NAA Not Detected (NotDetected)
== END 2020-07-25 08:08 | disposition home or self-care (01) ==
LOC: LABBT 08:07
PROVIDERS: ATTEND Thoracic Surgery (Cardiothoracic Vascular Surgery)
DX: Z01.812 Encounter for preprocedural laboratory examination (principal); S36.039A Unspecified laceration of spleen, initial encounter; Z20.822 Contact with and (suspected) exposure to COVID-19
CPT/HCPCS: 76942; 87635; U0003; U0005

== ENCOUNTER 2020-07-31 09:55 | Day surgery (SDC) | payer SELFPAY ==
[2020-07-28 08:36] VITALS: BMI 21.7
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
--- NOTE | 2020-07-31 11:49 | OP ---
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 PROCEDURES PERFORMED: 1. Ultrasound-guided right femoral venous access. 2. Inferior vena cavogram. 3. Removal of inferior vena cava filter. ANESTHESIA: 1% lidocaine for local. TOTAL CONTRAST: 8 mL. TOTAL FLUORO TIME: 1.7 minutes. DESCRIPTION OF PROCEDURE: After consent was obtained, the patient was brought to the catheter builder and placed in supine position on the catheter builder table. Appropriate central line and monitors were placed. Groins were prepped and draped in the usual sterile fashion. Using ultrasound guidance, the right groin was anesthetized with 1% lidocaine. Using ultrasound guidance, the right common femoral vein was accessed and a [employer] guidewire placed. Sheath was upsized to an 11 sheath. The 10-[place] removal sheath was placed into the inferior vena cava. Hand-injected vena cavogram was performed, showing no thrombus within the filter. The filter was then snared, collapsed, and removed. Followup vena cavogram again showed no thrombus within the vena cava and an intact vena cava. Sheath was removed and manual pressure held for hemostasis. The patient was transferred to recovery room and home later today. Job ID: [id number]
[2020-07-31] MEDS ORDERED: Iopamidol 370 76% 50 ML VIAL FS ONE (13:02)
== END 2020-07-31 14:24 | disposition home or self-care (01) ==
LOC: CCL 09:55
PROVIDERS: ATTEND Thoracic Surgery (Cardiothoracic Vascular Surgery)
PROC: 06PY3DZ Removal of Intraluminal Device from Lower Vein, Percutaneous Approach (ICD-10-PCS; principal; 2020-07-31)
DX: Z45.89 Encounter for adjustment and management of other implanted devices (principal)
CPT/HCPCS: 37193; 76942; J1644; Q9967